=== PATIENT | female | born 1970 | race Two or more races ===

== ENCOUNTER 2019-02-21 07:09 | Emergency (ER) | payer OTHER ==
[2019-02-21 07:14] VITALS: BP 110/55; PULSE 78; TEMP 98; BMI 19.1
--- NOTE | 2019-02-21 07:26 | PDOC ---
History of Present Illness - General Chief Complaint: Pain Stated Complaint: R THUMB POST OP PAIN Time Seen by Provider: 02/21/19 07:17 - History of Present Illness Initial Comments: 02/21/19 07:48 48-year-old female, status post primary repair of right thumb UCL grade 3 tear 3 weeks previously presents with severe pain to the first MCP joint with swelling at the incision site for the past several days which is intermittent and is exacerbated with physical therapy and minimal movement at the joint. Patient denies fever/chills/purulent drainage. REVIEW OF SYSTEMS CONSTITUTIONAL: No fever, no chills, no fatigue MUSKULOSKELETAL: right thumb pain, no myalgias SKIN: No rash NEURO: No headache EXAMINATION CONSTITUTIONAL: Well-appearing; well-nourished; in no apparent distress EXT: Right hand: Approximately 2.5 centimeter incision site to the ulnar aspect of the first MCP. Wound edges will approximated, there is no erythema or drainage. Minimal subcutaneous swelling is noted which may represent a small hematoma or a seroma. Minimal adduction, abduction and circumduction is present at the first MCP. patient is unable to completely oppose the thumb due to pain. 2 point discrimination is intact. She is neurovascularly intact proximally and distally to the incision site. No proximal lymphadenopathy is palpable. SKIN: Warm, dry, no rash NEURO: No focal neurological deficiencies. Past History - Past Medical History Allergies/Adverse Reactions: Allergies Allergy/AdvReac Type Severity Reaction Status Date / Time Fish Containing Products Allergy Verified 02/21/19 07:14 shellfish derived Allergy Verified 02/21/19 07:14 zucchini, squash Allergy Uncoded 02/21/19 07:14 Home Medications: Ambulatory Orders Oxycodone HCl/Acetaminophen [Percocet 5-325 mg Tablet] 1 tab PO Q6H #20 tablet MDD 4 02/21/19 COPD: No - Suicide/Smoking/Psychosocial Hx Smoking History: Never smoked Information on smoking cessation initiated: No Hx Alcohol Use: No Drug/Substance Use Hx: No *Physical Exam - Vital Signs Last Vital Signs Temp Pulse Resp BP Pulse Ox 98 F 78 18 110/55 L 100 02/21/19 07:12 02/21/19 07:12 02/21/19 07:12 02/21/19 07:12 02/21/19 07:12 Medical Decision Making - Medical Decision Making 02/21/19 07:56 Patient is a 48-year-old female who presents several weeks post primary repair of grade 3-thumb tear of her right dominant hand. Exam reveals a well- appearing incision site with minimal soft tissue swelling which may be related to a small hematoma or seroma. I do not suspect postoperative infection at this time. Patient is afebrile. There is no indication for imaging at this time as no fracture is suspected. Patient will be advised to continue physical therapy as scheduled, will prescribe pain meds to facilitate range of motion exercises. Will discharge with outpatient follow-up. *DC/Admit/Observation/Transfer Diagnosis at time of Disposition: Post-operative pain - Discharge Dispostion Disposition: HOME Condition at time of disposition: Stable - Referrals Referrals: hand surgery, one week [Other] - Patient Instructions Printed Discharge Instructions: DI for Prescription Opioid Use, DI for Postoperative Pain - Post Discharge Activity
== END 2019-02-21 08:18 | disposition home or self-care (01) ==
LOC: JER 07:09
DX: G89.18 Other acute postprocedural pain (principal); M79.644 Pain in right finger(s)
CPT/HCPCS: 99281-25